=== PATIENT | female | born 1985 | race Caucasian/White ===

== ENCOUNTER 2018-07-17 11:08 | Emergency (ER) | payer SELFPAY ==
[~2018-07-17] VITALS: Ht 170.2 cm; Wt 91.0 kg
[2018-07-17 14:41] VITALS: BP 121/80
== END 2018-07-17 14:41 | disposition home or self-care (01) ==
LOC: ER 11:08
DX: M54.89 Other dorsalgia (principal); M54.2 Cervicalgia; V49.49XA Driver injured in collision with other motor vehicles in traffic accident, initial encounter; Y93.89 Activity, other specified; Y92.89 Other specified places as the place of occurrence of the external cause; Y99.8 Other external cause status
CPT/HCPCS: 99283

== ENCOUNTER 2022-05-07 17:09 | Emergency (ER) | payer MEDICAID ==
[~2022-05-07] VITALS: Ht 165.1 cm; Wt 92.0 kg
[2022-05-07] MEDS ORDERED: LIDOCAINE 5% PATCH TOP SCH (19:30)
[2022-05-07] MEDS ORDERED: METHOCARBAMOL 750MG TABLET PO SCH (19:30)
[2022-05-07] MEDS ORDERED: ACETAMINOPHEN 325MG TABLET PO ONE (19:30)
[2022-05-07] MEDS ORDERED: KETOROLAC 60MG/2ML VIAL IM ONE (19:30)
[2022-05-07] MEDS ORDERED: LIDO1ADH23 TP (20:10)
[2022-05-07] MEDS ORDERED: IBUP-2028 MT (20:10)
[2022-05-07] MEDS ORDERED: TOPUD PO (20:10)
[2022-05-07] MEDS ORDERED: METH-653 MT (20:10)
[2022-05-07 20:17] VITALS: BP 124/72
== END 2022-05-07 20:25 | disposition home or self-care (01) ==
LOC: ER 17:09
DX: S23.3XXA Sprain of ligaments of thoracic spine, initial encounter (principal); V49.49XA Driver injured in collision with other motor vehicles in traffic accident, initial encounter; Y93.89 Activity, other specified; Y92.89 Other specified places as the place of occurrence of the external cause
CPT/HCPCS: 71045; 81025; 96372; 99284; J1885